=== PATIENT | male | born 1950 | race Caucasian/White ===

== ENCOUNTER 2018-07-13 14:37 | Observation (INO) | payer OTHER, MEDICARE ==
--- NOTE | 2018-07-13 14:55 | PDOC ---
History of Present Illness - General Chief Complaint: Palpitations Stated Complaint: SUDDEN ONSET DIZZINESS, PALPITATION WEAKNESS Time Seen by Provider: 07/13/18 14:39 History Source: Patient, Family Exam Limitations: No Limitations - History of Present Illness Initial Comments: 07/13/18 14:49 68 year old with past medical history anxiety, depression, bipolar, prior kidney mass removal and multiple spinal surgeries who presents with palpitations , slurring of words, word finding difficulty, esophageal spasm, dizziness and uncoordinated gait that started 30 min prior to arrival. The patient reports that he had a similar episode 3 years ago, he never went to the hospital and him and his believed the symptoms to be due to drug-drug interaction. The patient reports that at baseline he has decreased sensation in the R and L thigh , R arm "atrophy" due to spinal surgeries. The patient denies chest pain, shortness of breath, abdominal pain, nausea, vomiting, diarrhea, constipation or fevers. He denies any recent travel or sick contacts. Denies eating anything unusual. He has no other complaints at bedside. PCP: Lane NIH Stroke Scale - Last Known Well Date/Time & Onset Date Last Known Well: 07/13/18 Time Last Known Well: 14:30 - Initial Evaluation Level of consciousness: Alert Ask patient the month and their age: Answers both correctly Ask patient to open & close eyes; make fist and let go: Obeys both correctly Best gaze (horizontal eye movement): Normal Visual field testing: No visual field loss Facial paresis (Show teeth/raise eyebrows/close eyes tight): Normal symmetrical movement Motor Function: Left Arm: Normal Motor Function: Right Arm: Normal (extends arm 90 (or 45) degrees for 10 seconds without drift Motor Function: Left Leg: Normal (extends leg 30 degrees for 5 seconds without drift) Motor Function: Right Leg: Normal (extends leg 30 degrees for 5 seconds without drift) Limb Ataxia: No ataxia Sensory(Use pinprick test arms,legs,trunk,face/side to side): Normal Best language (Describe picture, name items, read sentences): No Aphasia Dysarthria (read several words): Normal articulation Extinction and Inattention: No abnormality - Total Score NIH Stroke Scale Score: 0 Past History - Past Medical History Allergies/Adverse Reactions: Allergies Allergy/AdvReac Type Severity Reaction Status Date / Time Penicillins Allergy Intermediate hives Verified 07/13/18 14:40 Home Medications: Ambulatory Orders Finasteride [Proscar] 1 tab PO DAILY 07/13/18 Levothyroxine [Synthroid -] 125 mcg PO DAILY 07/13/18 Oxcarbazepine [Trileptal -] 750 mg PO BID 07/13/18 Quetiapine Fumarate [Seroquel -] 50 mg PO HS 07/13/18 Quetiapine Fumarate [Seroquel -] 400 mg PO DAILY 07/13/18 Tamsulosin HCl [Flomax] 0.4 mg PO DAILY 07/13/18 Zaleplon [Sonata] 1 tab PO DAILY 07/13/18 Review of Systems - Review of Systems Able to Perform ROS?: Yes Is the patient limited Hungarian proficient: No Constitutional: No: Chills, Diaphoresis, Fever HEENTM: Yes: Tinnitus (baseline). No: Blurred Vision Respiratory: No: Cough, Orthopnea, Shortness of Breath Cardiac (ROS): Yes: Palpitations. No: Chest Pain, Syncope, Chest Tightness ABD/GI: No: Constipated, Diarrhea, Nausea, Vomiting : No: Burning, Dysuria, Hematuria Musculoskeletal: No: Back Pain, Muscle Pain, Muscle Weakness Neurological: No: Headache, Numbness, Paresthesia, Tingling *Physical Exam - Physical Exam Comments: 07/13/18 15:08 GENERAL: Awake, alert, and fully oriented, in no acute distress, can follow all commands, some mild slurring of words, word finding difficulty noted HEAD: No signs of trauma, normocephalic, atraumatic EYES: PERRLA, EOMI, sclera anicteric, conjunctiva clear, No nystagmus ENT: Auricles normal inspection, hearing grossly normal, nares patent, oropharynx clear without exudates. Moist mucosa NECK: Normal ROM, supple, no lymphadenopathy, JVD, or masses LUNGS: No distress, speaks full sentences, clear to auscultation bilaterally HEART: Regular rate and rhythm, normal S1 and S2, no murmurs, rubs or gallops, peripheral pulses normal and equal bilaterally. ABDOMEN: Soft, nontender, normoactive bowel sounds. No guarding, no rebound. No masses BACK: No CVA tenderness EXTREMITIES : Normal inspection, Normal range of motion, no edema. No clubbing or cyanosis. NEUROLOGICAL: Cranial nerves II through XII grossly intact. Normal speech, normal gait, no new focal sensorimotor deficits, baseline decrease sensation on R and L thigh SKIN: Warm, Dry, normal turgor, no rashes or lesions noted ED Treatment Course - LABORATORY CBC & Chemistry Diagram: 07/13/18 14:45 07/13/18 15:10 - RADIOLOGY Radiology Studies Ordered: Category Date Time Status HEAD CT WITHOUT CONTRAST [CT] Stat CT Scan 07/13/18 14:47 Ordered Medical Decision Making - Medical Decision Making 68 year old with past medical history anxiety, depression, bipolar, prior kidney mass removal and multiple spinal surgeries who presents with palpitations , slurring of words, word finding difficulty, esophageal spasm, dizziness and uncoordinated gait that started 30 min prior to arrival. The patient reports that he had a similar episode 3 years ago, he never went to the hospital and him and his believed the symptoms to be due to drug-drug interaction. The patient reports that at baseline he has decreased sensation in the R and L thigh , R arm "atrophy" due to spinal surgeries. The patient denies chest pain, shortness of breath, abdominal pain, nausea, vomiting, diarrhea, constipation or fevers. He denies any recent travel or sick contacts. Denies eating anything unusual. He has no other complaints at bedside. DDX including but not limited to: arrythmia vs anxiety vs supratherapeutic exogenous levothyroxine vs electrolyte abnormality vs UTI W/U: - TX: - ED Course: Patient brought in by , supporting his weight. 07/13/18 15:05 EKG: sinus tachycardia 121. Went down to 88. 07/13/18 15:06 Patient anxious appearing. 07/13/18 15:29 Patient feeling improved, "more clear in the head" can ambulate, easier time finding words. Head CT: unremarkable. 07/13/18 15:45 Neurology ([facility]) contacted, made aware of patient and will come see the patient. 07/13/18 16:09 Medicine contacted. Accepted patient *DC/Admit/Observation/Transfer Diagnosis at time of Disposition: Palpitations, TIA (transient ischemic attack) - Discharge Dispostion Disposition: HOME Condition at time of disposition: Stable Decision to Admit order: Yes - Referrals - Patient Instructions - Post Discharge Activity
[2018-07-13 15:06] LABS: BASO % 2.5 % (0-2.0)
--- NOTE | 2018-07-13 15:10 | PDOC ---
Attending Attestation - Resident Resident Name: Iris Moncada - ED Attending Attestation I have performed the following: I have examined & evaluated the patient, The case was reviewed & discussed with the resident, I agree w/resident's findings & plan, Exceptions are as noted - HPI HPI: 07/13/18 15:05 68 yo M h/o anxiety, bipolar, and sleep apnea here with episode of altered speech, and unsteady gait. pt states he was at restaurant with a friend, suddently felt like he couldn't get his words out, and was unsteady on his feet. started 30 minutes prior to arrival. on evaluation now, pt states he is back to baseline. here with his who states he is at baseline. did have similar episode few years ago which they had attributed to his psych meds, and he never saw physician or evaluated because came back to baseline. no f/c no intox. no prior nuero eval. no persistant weakness. - Physicial Exam PE: 07/13/18 15:07 awake alert lungs clear heart rrr no mrg abd soft nt nd. ext wwp. no edema. no calf tenderness. nuero: alert oriented c 3. VF intact. CN intact. speech clear. sensation ( decreased right anterior thigh old, ) finger to nose intact. gait stable. 5/5 strength all four ext. NIH stroke scale 0 skin warm and dry. - Medical Decision Making 07/13/18 15:10 differential anxiety, tia, electrolyte abnormality, dysrythmia, plan ct head. labs ekg. will likely requuire admission for observation. consult nuerology. 07/13/18 17:[address] head normal. pt sxs resolved. due to concerns of story for tia, will admit for observation over. night. dr. osborne nuerology consulted. Heart Score/ECG Review #1 General ECG Interpretation: Sinus Rhythm, Normal Intervals, No acute ischemic changes Compared to previous ECG there are: Other (sinus tachycardia 121) NIH Stroke Scale - Initial Evaluation Level of consciousness: Alert Ask patient the month and their age: Answers both correctly Ask patient to open & close eyes; make fist and let go: Obeys both correctly Best gaze (horizontal eye movement): Normal Visual field testing: No visual field loss Facial paresis (Show teeth/raise eyebrows/close eyes tight): Normal symmetrical movement Motor Function: Left Arm: Normal Motor Function: Right Arm: Normal (extends arm 90 (or 45) degrees for 10 seconds without drift Motor Function: Left Leg: Normal (extends leg 30 degrees for 5 seconds without drift) Motor Function: Right Leg: Normal (extends leg 30 degrees for 5 seconds without drift) Limb Ataxia: No ataxia Sensory(Use pinprick test arms,legs,trunk,face/side to side): Normal Best language (Describe picture, name items, read sentences): No Aphasia Dysarthria (read several words): Normal articulation (decreased sensation right anterior thigh, ( old)) Extinction and Inattention: No abnormality - Total Score NIH Stroke Scale Score: 0
[2018-07-13 15:12] LABS: ACTIVATED PTT 19.8 SECONDS (25.2-36.5); EOS % 1.1 % (0-4.5); HEMATOCRIT 39.4 % (35.4-49); HEMOGLOBIN 13.4 GM/dl (11.7-16.9); LYMPH % 31.2 % (8-40); MCH 30.7 pg (25.7-33.7); MCHC 34.2 g/dl (32.0-35.9); MEAN CELL VOLUME 89.9 fl (80-96); MEAN PLT VOLUME 7.9 fl (7.5-11.1); MONO % 5.5 % (3.8-10.2); NEUT % 59.7 % (42.8-82.8); PLATELET COUNT 252 K/MM3 (134-434); RBC 4.38 M/mm3 (4.00-5.60); RDW 12.4 % (11.9-15.9)
[2018-07-13] MEDS ORDERED: SODIUM CHLORIDE 1,000 ML IV SCH (15:15)
[2018-07-13 15:16] LABS: INR 1.04 (0.82-1.09); PROTHROMBIN TIME (PATIENT) 11.6 SEC (10.2-13.0)
[2018-07-13 15:37] LABS: ALBUMIN 4.1 g/dl (3.5-5.0); ALK PHOS 53 U/L (32-92); ANION GAP 6 MMOL/L (8-16); BILIRUBIN,TOTAL 0.5 mg/dl (0.2-1.0); BLOOD UREA NITROGEN 16 mg/dl (7-18); CALCIUM 8.8 mg/dl (8.4-10.2); CHLORIDE 107 mmol/L (98-107); CO2 24 mmol/L (22-28); CREATININE 0.9 mg/dl (0.6-1.3); GLUCOSE,RANDOM 121 mg/dl (74-106); POTASSIUM 3.9 mmol/L (3.5-5.1); SGOT/AST 28 U/L (10-42); SGPT/ALT 31 U/L (10-40); SODIUM 137 mmol/L (136-145); TOT PROT 6.4 g/dl (6.4-8.3)
[2018-07-13 17:09] LABS: PH,URINE 6.5 (4.5-8); URINE APPEARANCE Clear; URINE BILIRUBIN Negative (NEGATIVE); URINE COLOR Yellow; URINE GLUCOSE (UA) Negative (NEGATIVE); URINE KETONE Trace (NEGATIVE); URINE LEUK ESTERASE Negative (NEGATIVE); URINE NITRITE Negative (NEGATIVE); URINE PROTEIN Negative (NEGATIVE); URINE UROBILINOGEN 0.2 (0.2-1.0)
[2018-07-13 18:32] VITALS: BMI 24.7
--- NOTE | 2018-07-13 21:04 | HP ---
Admitting History and Physical - Admission Chief Complaint: facial numbness and tingiling in the hand History of Present Illness: this is a 68 y/o m patient with hx of Bipolar, hypothyroidism and BPH presented with right sided arm numbness and facial numbness that resolved prior to him coming to the hospital. patient stated that 2 years ago he had similar symptoms that happened but that time he "froze" patient stated that this happens every time he takes the "seroquel" in the morning. History Source: Patient Limitations to Obtaining History: No Limitations - Advance Directives Advance Directives: Yes: Living Will, Health Care Proxy, Organ Donor, Tissue Donor - Smoking History Smoking history: Never smoked Have you smoked in the past 12 months: No - Alcohol/Substance Use Hx Alcohol Use: Yes (social) Home Medications - Allergies Allergies/Adverse Reactions: Allergies Allergy/AdvReac Type Severity Reaction Status Date / Time Penicillins Allergy Intermediate hives Verified 07/13/18 14:40 - Home Medications Home Medications: Ambulatory Orders Finasteride [Proscar] 1 tab PO DAILY 07/13/18 Levothyroxine [Synthroid -] 125 mcg PO DAILY 07/13/18 Oxcarbazepine [Trileptal -] 750 mg PO BID 07/13/18 Quetiapine Fumarate [Seroquel -] 50 mg PO HS 07/13/18 Quetiapine Fumarate [Seroquel -] 400 mg PO DAILY 07/13/18 Tamsulosin HCl [Flomax] 0.4 mg PO DAILY 07/13/18 Zaleplon [Sonata] 1 tab PO HS 07/13/18 Review of Systems - Review of Systems Constitutional: reports: No Symptoms Eyes: reports: No Symptoms HENT: reports: No Symptoms Neck: reports: No Symptoms Cardiovascular: reports: Palpitations, Shortness of Breath Respiratory: reports: No Symptoms, SOB Gastrointestinal: reports: No Symptoms Genitourinary: reports: No Symptoms Musculoskeletal: reports: No Symptoms Integumentary: reports: No Symptoms Neurological: reports: Seizure, Syncope Endocrine: reports: No Symptoms Hematology/Lymphatic: reports: No Symptoms Psychiatric: reports: Other (bipolar) Physical Examination Vital Signs: Vital Signs Temperature 97.6 F 07/13/18 18:22 Pulse Rate 62 07/13/18 18:22 Respiratory Rate 16 07/13/18 18:22 Blood Pressure 128/72 07/13/18 18:22 O2 Sat by Pulse Oximetry (%) 96 07/13/18 20:49 Constitutional: Yes: Well Nourished, No Distress, Calm Eyes: Yes: WNL, Conjunctiva Clear, EOM Intact HENT: Yes: WNL, Atraumatic, Normocephalic Neck: Yes: WNL, Supple, Trachea Midline Cardiovascular: Yes: WNL, Regular Rate and Rhythm, S1, S2 Respiratory: Yes: WNL, CTA Bilaterally Gastrointestinal: Yes: WNL, Normal Bowel Sounds, Soft ...Rectal Exam: Yes: Deferred Musculoskeletal: Yes: WNL Extremities: Yes: WNL Labs: CBC, BMP 07/13/18 14:45 07/13/18 15:10 Imaging - Results EKG: Image Reviewed Problem List - Problems (1) Hypothyroidism Assessment/Plan: c/w levothyroixine 125mcg Code(s): E03.9 - HYPOTHYROIDISM, UNSPECIFIED (2) Palpitations Assessment/Plan: sinus tachycardia patient is back in NSR Code(s): R00.2 - PALPITATIONS (3) TIA (transient ischemic attack) Assessment/Plan: patient presented with facial numbness and hand numbness head CT negative fora n acute stroke, echocardiogram TSH neurology evaluation cardiology consultation check A1c Code(s): G45.9 - TRANSIENT CEREBRAL ISCHEMIC ATTACK, UNSPECIFIED
[2018-07-14 11:06] LABS: ALBUMIN 3.7 g/dl (3.5-5.0); ALK PHOS 47 U/L (32-92); ANION GAP 7 MMOL/L (8-16); BILIRUBIN,TOTAL 0.6 mg/dl (0.2-1.0); BLOOD UREA NITROGEN 13 mg/dl (7-18); CALCIUM 9.1 mg/dl (8.4-10.2); CHLORIDE 107 mmol/L (98-107); CO2 25 mmol/L (22-28); CREATININE 0.9 mg/dl (0.6-1.3); GLUCOSE,RANDOM 91 mg/dl (74-106); MAGNESIUM 1.9 mg/dL (1.8-2.4); POTASSIUM 4.5 mmol/L (3.5-5.1); SGOT/AST 18 U/L (10-42); SGPT/ALT 26 U/L (10-40); SODIUM 139 mmol/L (136-145); TOT PROT 5.8 g/dl (6.4-8.3)
[2018-07-14 11:17] LABS: EOS % 2.6 % (0-4.5); HEMATOCRIT 36.3 % (35.4-49); LYMPH % 37.7 % (8-40); MCH 32.1 pg (25.7-33.7); MEAN CELL VOLUME 89.2 fl (80-96); MEAN PLT VOLUME 7.8 fl (7.5-11.1); MONO % 9.6 % (3.8-10.2); NEUT % 49.1 % (42.8-82.8); PLATELET COUNT 293 K/MM3 (134-434); RBC 4.07 M/mm3 (4.00-5.60); RDW 13.3 % (11.9-15.9); WHITE BLOOD COUNT 3.7 K/mm3 (4.0-10.0)
--- NOTE | 2018-07-14 12:22 | EKG ---
Test Reason : Blood Pressure : / mmHG Vent. Rate : 121 BPM Atrial Rate : 121 BPM P-R Int : 144 ms QRS Dur : 092 ms QT Int : 308 ms P-R-T Axes : 069 -05 062 degrees QTc Int : 437 ms SINUS TACHYCARDIA INFERIOR INFARCT , AGE UNDETERMINED ABNORMAL ECG NO PREVIOUS ECGS AVAILABLE Confirmed by JUDY HADLEY MD ([id number]) on 07/14/2018 12:22:32 PM Referred By: Confirmed By:JUDY HADLEY MD
--- NOTE | 2018-07-14 13:14 | CON.NEURO ---
Consult - Alcohol/Substance Use Hx Alcohol Use: Yes (social) - Smoking History Smoking history: Never smoked Have you smoked in the past 12 months: No Home Medications - Allergies Allergies/Adverse Reactions: Allergies Allergy/AdvReac Type Severity Reaction Status Date / Time Penicillins Allergy Intermediate hives Verified 07/13/18 14:40 - Home Medications Home Medications: Ambulatory Orders Finasteride [Proscar] 1 tab PO DAILY 07/13/18 Levothyroxine [Synthroid -] 125 mcg PO DAILY 07/13/18 Oxcarbazepine [Trileptal -] 750 mg PO BID 07/13/18 Quetiapine Fumarate [Seroquel -] 50 mg PO HS 07/13/18 Quetiapine Fumarate [Seroquel -] 400 mg PO DAILY 07/13/18 Tamsulosin HCl [Flomax] 0.4 mg PO DAILY 07/13/18 Zaleplon [Sonata] 1 tab PO HS 07/13/18 Physical Exam-Neuro Vital Signs: Vital Signs Temperature 97.9 F 07/14/18 06:59 Pulse Rate 59 L 07/14/18 06:59 Respiratory Rate 18 07/14/18 09:00 Blood Pressure 129/63 07/14/18 06:59 O2 Sat by Pulse Oximetry (%) 98 07/14/18 09:00 Labs: CBC, BMP 07/14/18 07:00 07/14/18 07:00 INR, PTT INR 1.04 (0.82-1.09) 07/13/18 14:45 Assessment/Plan cc Episode of confusion HPI 68 year old male history of Biopolar disorder, Anxiety, Sleep Apnea . He came with episode of unsteady gait, speech difficulty and confusion lasting for few hours. He takes seroquel 450 mg qhs and yesterday he took medicaiton one hour before lunch. There was no alcohol during lunch and he feel something wrong and he feel dizzy and confused . He later came to hospital , nih score was [address] head is normal. He do have history of Hypothyroidism, and Cervical stenosis and surgery done. Patient has similar symptoms in past at that time, he took medication as well. PMH as above Allergies/Adverse Reactions: Allergies Allergy/AdvReac Type Severity Reaction Status Date / Time Penicillins Allergy Intermediate hives Verified 07/13/18 14:40 Home Medications: Finasteride [Proscar] 1 tab PO DAILY 07/13/18 Levothyroxine [Synthroid -] 125 mcg PO DAILY 07/13/18 Oxcarbazepine [Trileptal -] 750 mg PO BID 07/13/18 Quetiapine Fumarate [Seroquel -] 50 mg PO HS 07/13/18 Quetiapine Fumarate [Seroquel -] 400 mg PO DAILY 07/13/18 Tamsulosin HCl [Flomax] 0.4 mg PO DAILY 07/13/18 Zaleplon [Sonata] 1 tab PO HS 07/13/18 ROS,Family Hx, Social History reviewed in chart Neurological Examination Alert oriented x 3, speech is normal CN , eomi, pupils reactive no face asymmetry moving all extremyt there is loss of RIGTH fdi gait and coordination is normal CT head is normal Assessment , most likley confusion, speech difficulty seems to be related to extra dose of seroquel taken during day time. He has no risk factor , including DM, HTN, HLD , CAD OR SMOKER. Plan : suggest to do MRI of brain and carotid ultrasound - if mri showed any ischemia , than aspirin and statin can be added - neuro check - would follow up on mri results , Thanking you so much Facundo Canela MD
[2018-07-14] MEDS ORDERED: QUEtiapine FUMARATE 400 MG TABLET PO SCH ×2 (13:45→22:00)
[2018-07-14] MEDS ORDERED: FINASTERIDE 5 MG TABLET (FP) PO SCH (13:45)
[2018-07-14] MEDS ORDERED: LEVOTHYROXINE NA 125 MCG TABLET (FP) PO SCH (13:45)
[2018-07-14] MEDS ORDERED: OXcarbazepine 150 MG TABLET (UD) PO SCH (13:45)
[2018-07-14] MEDS ORDERED: TAMSULOSIN HCL 0.4 MG CAP PO SCH (13:45)
[2018-07-14 16:01] VITALS: BP 125/68; PULSE 63; TEMP 98.2
--- NOTE | 2018-07-14 16:36 | DS ---
Physical Exam: SUBJECTIVE: Patient seen and examined OBJECTIVE: Vital Signs Period Temp Pulse Resp BP Sys/Ledesma Pulse Ox Last 24 Hr 97.6 F-98.2 F 59-63 16-18 121-131/63-72 96-98 PHYSICAL EXAM GENERAL: The patient is awake, alert, and fully oriented, in no acute distress. HEAD: Normal with no signs of trauma. EYES: PERRL, extraocular movements intact, sclera anicteric, conjunctiva clear. ENT: Ears normal, nares patent, oropharynx clear without exudates, moist mucous membranes. NECK: Trachea midline, full range of motion, supple. LUNGS: Breath sounds equal, clear to auscultation bilaterally, no wheezes, no crackles, no accessory muscle use. HEART: Regular rate and rhythm, S1, S2 without murmur, rub or gallop. ABDOMEN: Soft, nontender, nondistended, normoactive bowel sounds, no guarding, no rebound, no hepatosplenomegaly, no masses. EXTREMITIES: 2+ pulses, warm, well-perfused, no edema. NEUROLOGICAL: Cranial nerves II through XII grossly intact. Normal speech, gait not observed. PSYCH: Normal mood, normal affect. SKIN: Warm, dry, normal turgor, no rashes or lesions noted. LABS Laboratory Results - last 24 hr 07/13/18 07/13/18 07/13/18 15:10 17:03 22:50 WBC RBC Hgb Hct MCV MCH MCHC RDW Plt Count MPV Absolute Neuts (auto) Neutrophils % Lymphocytes % Monocytes % Eosinophils % Basophils % Nucleated RBC % Sodium Potassium Chloride Carbon Dioxide Anion Gap BUN Creatinine Creat Clearance w eGFR Random Glucose Hemoglobin A1c % Calcium Magnesium Total Bilirubin AST ALT Alkaline Phosphatase Troponin I < 0.03 Total Protein Albumin Cholesterol TSH 0.45 Urine Color Yellow Urine Appearance Clear Urine pH 6.5 Ur Specific [place] >= 1.030 Urine Protein Negative Urine Glucose (UA) Negative Urine Ketones Trace Urine Blood Negative Urine Nitrite Negative Urine Bilirubin Negative Urine Urobilinogen 0.2 Ur Leukocyte Esterase Negative 07/14/18 07/14/18 07/14/18 07:00 07:00 07:00 WBC 3.7 L RBC 4.07 Hgb 13.0 Hct 36.3 MCV 89.2 MCH 32.1 MCHC 36.0 H RDW 13.3 Plt Count 293 MPV 7.8 Absolute Neuts (auto) 1.8 Neutrophils % 49.1 Lymphocytes % 37.7 Monocytes % 9.6 Eosinophils % 2.6 Basophils % 1.0 Nucleated RBC % 0 Sodium Potassium Chloride Carbon Dioxide Anion Gap BUN Creatinine Creat Clearance w eGFR Random Glucose Hemoglobin A1c % 5.2 Calcium Magnesium Total Bilirubin AST ALT Alkaline Phosphatase Troponin I Total Protein Albumin Cholesterol 243 TSH Urine Color Urine Appearance Urine pH Ur Specific [place] Urine Protein Urine Glucose (UA) Urine Ketones Urine Blood Urine Nitrite Urine Bilirubin Urine Urobilinogen Ur Leukocyte Esterase 07/14/18 07/14/18 07:00 07:00 WBC RBC Hgb Hct MCV MCH MCHC RDW Plt Count MPV Absolute Neuts (auto) Neutrophils % Lymphocytes % Monocytes % Eosinophils % Basophils % Nucleated RBC % Sodium 139 Potassium 4.5 Chloride 107 Carbon Dioxide 25 Anion Gap 7 L BUN 13 Creatinine 0.9 Creat Clearance w eGFR > 60 Random Glucose 91 D Hemoglobin A1c % Calcium 9.1 Magnesium 1.9 Total Bilirubin 0.6 AST 18 D ALT 26 Alkaline Phosphatase 47 Troponin I < 0.03 Total Protein 5.8 L Albumin 3.7 Cholesterol TSH Urine Color Urine Appearance Urine pH Ur Specific [place] Urine Protein Urine Glucose (UA) Urine Ketones Urine Blood Urine Nitrite Urine Bilirubin Urine Urobilinogen Ur Leukocyte Esterase HOSPITAL COURSE: Date of Admission:07/13/18 Date of Discharge: 07/14/18 Minutes to complete discharge: 35 Discharge Summary Reason For Visit: PALPITATIONS, TRANSIENT ISCHEMIC ATTACK Current Active Problems Hypothyroidism (Acute) Palpitations (Acute) TIA (transient ischemic attack) (Acute) Condition: Stable - Instructions - Home Medications Comprehensive Discharge Medication List: Ambulatory Orders Finasteride [Proscar] 1 tab PO DAILY 07/13/18 Levothyroxine [Synthroid -] 125 mcg PO DAILY 07/13/18 Oxcarbazepine [Trileptal -] 750 mg PO BID 07/13/18 Quetiapine Fumarate [Seroquel -] 50 mg PO HS 07/13/18 Quetiapine Fumarate [Seroquel -] 400 mg PO DAILY 07/13/18 Tamsulosin HCl [Flomax] 0.4 mg PO DAILY 07/13/18 Zaleplon [Sonata] 1 tab PO HS 07/13/18 This patient is new to me today: Yes Date on this admission: 07/14/18 Emergency Visit: Yes ED Registration Date: 07/13/18 Care time: The patient presented to the Emergency Department on the above date and was hospitalized for further evaluation of their emergent condition. Critical Care patient: No - Discharge Referral Referred to [facility] No
[2018-07-14] MEDS ORDERED: QUEtiapine FUMARATE 50 MG TABLET PO SCH (22:00)
[2018-07-15] MEDS ORDERED: FINASTERIDE 5 MG TABLET (FP) PO SCH (10:00)
== END 2018-07-14 17:37 | disposition home or self-care (01) ==
LOC: FER 14:37 → FM/S 16:10 → UNDOADMOB 16:10
PROVIDERS: ADMIT Internal Medicine; ATTEND Nurse Practitioner Acute Care
PROC: 3E0337Z Introduction of Electrolytic and Water Balance Substance into Peripheral Vein, Percutaneous Approach (ICD-10-PCS; principal; 2018-07-13)
DX: G45.9 Transient cerebral ischemic attack, unspecified (principal); R00.2 Palpitations; E03.9 Hypothyroidism, unspecified; F41.9 Anxiety disorder, unspecified; F31.9 Bipolar disorder, unspecified; Z88.0 Allergy status to penicillin
CPT/HCPCS: 36415; 70450-TC; 80053; 81003; 82465; 83036; 83735; 84443; 84484; 85025; 85610; 85730; 87086; 93005; 93880-TC; 99284-25; G0378; J7030